=== PATIENT | male | born 1995 | race Caucasian/White ===

== ENCOUNTER 2018-11-11 17:41 | Emergency (ER) | payer BC ==
[2018-11-11] MEDS ORDERED: MULT-1335 PO (17:46)
--- NOTE | 2018-11-11 18:12 | ER Report ---
History and Physical Time Seen By MD: 18:12 Hx. 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 NO KNOWN INJURY. HPI/ROS CHIEF COMPLAINT: Left arm pain, dizziness HISTORY OF PRESENT ILLNESS: This is a 23-year-old male. He had abrupt onset of left arm pain about 1 hour prior to coming to the ER today. Had some shortness of breath, dizziness, nausea at the time as well. No known injury. Pain is at the elbow and bicep area. No radiation. Does worsen a little with movement of the arm and palpation. Has no chest pain. Shortness of breath at the same time. Not worse with exertion. No heart or lung problems in the past. No fevers or chills noted. Nausea, but no abdominal pain. Normal eating and drinking. Normal bowel and bladder. Allergies: Coded Allergies: No Known Drug Allergies (Unverified , 11/11/18) Home Meds Reported Medications Multivitamin With Minerals (MULTIPLE VITAMIN) 1 Each Tablet, 1 EACH PO DAILY, TAB 11/11/18 Reviewed Nurses Notes: Yes Hx Substance Use Disorder: No Hx Alcohol Use: No Constitutional Vital Sign - Last 24 Hours 11/11/18 11/11/18 11/11/18 11/11/18 17:44 18:03 18:11 18:20 Pulse 144 123 Resp 16 13 B/P (MAP) 177/86 152/91 (111) 104/61 (75) Pulse Ox 97 99 O2 Delivery Room Air 11/11/18 11/11/18 11/11/18 11/11/18 18:30 18:40 18:41 19:00 Temp 98.9 Pulse 85 101 Resp 16 13 B/P (MAP) 142/89 (106) 130/78 (95) 132/78 (96) Pulse Ox 93 95 O2 Delivery Room Air 11/11/18 11/11/18 11/11/18 11/11/18 19:11 19:20 19:40 19:40 Pulse 101 103 Resp 11 16 B/P (MAP) 113/65 (81) 115/70 (85) 115/70 (85) Pulse Ox 94 93 11/11/18 11/11/18 11/11/18 20:00 20:10 20:20 Pulse 102 Resp 15 B/P (MAP) 111/65 (80) 118/83 (95) Pulse Ox 90 Physical Exam General Appearance: The patient is alert. No acute distress. But is anxious. Eyes: Pupils are equal, round. No pallor, injection or icterus. ENT: Mucous membranes are moist. Normal oral mucosa. Posterior oropharynx is normal. Neck: Supple and non tender. Respiratory: Breathing easily and unlabored. Lungs are clear to auscultation. Did hear a lot of gurgling in the esophagus on listening to the chest both for lungs and heart Cardiovascular: Regular rate and rhythm. No murmurs, gallops or rubs. Normal pulsed and peripheral perfusion in the upper extremities. No edema. Gastrointestinal: Abdomen is soft and non tender. Nondistended. Normal active bowel sounds. Neurological: Alert and oriented x3. No focal neurologic deficits in the extremities, Normal sensation and motor function. Skin: Warm and dry. No rashes. Musculoskeletal: Pain in the elbow area with palpation. Full range of motion. No tenderness in palpation of the shoulder, neck and thoracic spine. DIFFERENTIAL DIAGNOSIS: After history and physical exam, differential diagnosis was considered for patient with pain in the left arm associated with nausea, shortness of breath, and dizziness, could be musculoskeletal nature, could be cardiac or pulmonary related or GI with referred pain. No neurologic or musculoskeletal abnormalities noted on exam but we will also get an x-ray of the elbow given the pain in that region. Medical Decision Making Data Points Result Diagram: 11/11/18 0000 11/11/18 0000 Laboratory Hematology Test 11/11/18 00:00 Red Blood Count 5.23 M/uL (4.00-5.60) Mean Corpuscular Volume 82.2 fL (80.0-96.0) Mean Corpuscular Hemoglobin 28.2 pg (26.0-33.0) Mean Corpuscular Hemoglobin Concent 34.3 g/dL (32.0-36.0) Red Cell Distribution Width 13.5 % (11.5-14.5) Mean Platelet Volume 7.6 fL (7.2-11.1) Neutrophils (%) (Auto) 68.2 % (39.4-72.5) Lymphocytes (%) (Auto) 23.8 % (17.6-49.6) Monocytes (%) (Auto) 6.7 % (4.1-12.4) Eosinophils (%) (Auto) 0.4 % (0.4-6.7) Basophils (%) (Auto) 0.9 % (0.3-1.4) Nucleated RBC Relative Count (auto) 0.1 /100WBC Neutrophils # (Auto) 5.3 K/uL (2.0-7.4) Lymphocytes # (Auto) 1.8 K/uL (1.3-3.6) Monocytes # (Auto) 0.5 K/uL (0.3-1.0) Eosinophils # (Auto) 0.0 K/uL (0.0-0.5) Basophils # (Auto) 0.1 K/uL (0.0-0.1) Nucleated RBC Absolute Count (auto) 0.01 K/uL D-Dimer Quantitative (PE/DVT) < 0.27 ug/ml (0-0.50) Sodium Level 139 mmol/L (137-145) Potassium Level 3.0 mmol/L (3.5-5.0) Chloride Level 101 mmol/L (98-107) Carbon Dioxide Level 23 mmol/L (22-30) Blood Urea Nitrogen 15 mg/dl (9-21) Creatinine 1.10 mg/dl (0.66-1.25) Glomerular Filtration Rate Calc > 60.0 Random Glucose 99 mg/dl (75-110) Calcium Level 10.0 mg/dl (8.4-10.2) Total Bilirubin 0.7 mg/dl (0.2-1.3) Aspartate Amino Transf (AST/SGOT) 34 U/L (0-35) Alanine Aminotransferase (ALT/SGPT) 50 U/L (0-56) Alkaline Phosphatase 91 U/L (0-126) Troponin I < 0.012 ng/ml Total Protein 8.1 g/dl (6.3-8.2) Albumin 5.0 g/dl (3.5-5.0) Amylase Level 49 U/L (0-110) Lipase 40 U/L (23-300) Chemistry Test 11/11/18 00:00 White Blood Count 7.7 k/uL (4.5-11.0) Red Blood Count 5.23 M/uL (4.00-5.60) Hemoglobin 14.7 g/dL (14.0-18.0) Hematocrit 43.0 % (42.0-52.0) Mean Corpuscular Volume 82.2 fL (80.0-96.0) Mean Corpuscular Hemoglobin 28.2 pg (26.0-33.0) Mean Corpuscular Hemoglobin Concent 34.3 g/dL (32.0-36.0) Red Cell Distribution Width 13.5 % (11.5-14.5) Platelet Count 411 K/uL (150-450) Mean Platelet Volume 7.6 fL (7.2-11.1) Neutrophils (%) (Auto) 68.2 % (39.4-72.5) Lymphocytes (%) (Auto) 23.8 % (17.6-49.6) Monocytes (%) (Auto) 6.7 % (4.1-12.4) Eosinophils (%) (Auto) 0.4 % (0.4-6.7) Basophils (%) (Auto) 0.9 % (0.3-1.4) Nucleated RBC Relative Count (auto) 0.1 /100WBC Neutrophils # (Auto) 5.3 K/uL (2.0-7.4) Lymphocytes # (Auto) 1.8 K/uL (1.3-3.6) Monocytes # (Auto) 0.5 K/uL (0.3-1.0) Eosinophils # (Auto) 0.0 K/uL (0.0-0.5) Basophils # (Auto) 0.1 K/uL (0.0-0.1) Nucleated RBC Absolute Count (auto) 0.01 K/uL D-Dimer Quantitative (PE/DVT) < 0.27 ug/ml (0-0.50) Glomerular Filtration Rate Calc > 60.0 Calcium Level 10.0 mg/dl (8.4-10.2) Total Bilirubin 0.7 mg/dl (0.2-1.3) Aspartate Amino Transf (AST/SGOT) 34 U/L (0-35) Alanine Aminotransferase (ALT/SGPT) 50 U/L (0-56) Alkaline Phosphatase 91 U/L (0-126) Troponin I < 0.012 ng/ml Total Protein 8.1 g/dl (6.3-8.2) Albumin 5.0 g/dl (3.5-5.0) Amylase Level 49 U/L (0-110) Lipase 40 U/L (23-300) Coagulation Test 11/11/18 00:00 D-Dimer Quantitative (PE/DVT) < 0.27 ug/ml EKG/Imaging EKG Interpretation 12 lead EKG: Rhythm: Sinus tachycardia, rate 103 [place]: normal QRS: normal ST segments: normal Imaging EXAMINATION: Chest 2 Views HISTORY: History of smoking. No chest complaints. COMPARISON: None. FINDINGS: The lungs are clear. Normal and symmetric lung volumes. No focal consolidation or pleural fluid. No pneumothorax. Normal cardiomediastinal silhouette, with normal heart size and pulmonary vascularity. Visualized osseous structures are unremarkable. IMPRESSION: Negative chest. Report Dictated By: Luis Estrada MD at 11/11/2018 7:02 PM EXAMINATION: Left elbow 3 views HISTORY: Left elbow pain. COMPARISON: None. FINDINGS: Bones of the left elbow demonstrate normal alignment. No evidence of fracture or dislocation. Joint space is preserved. Soft tissues are radiographically unremarkable. No significant elbow joint effusion is evident. IMPRESSION: Negative left elbow. Report Dictated By: Luis Estrada MD at 11/11/2018 7:04 PM ED Course/Re-evaluation Clinical Indication for ER IV: Hydration, IV Access ED Course Aspirin given initially, workup looking cardiac and pulmonary causes of the arm pain. EKG was negative. X-rays also unremarkable. Labs unremarkable. Discussed all this with the patient and his pain in the arm is now gone. No further nausea. With the increased gurgling heard in the esophagus when doing the chest exam, I feel like his most likely cause of pain is can be gastroesophageal reflux and possible esophagitis. He will go ahead and start a trial of either Pepcid or Zantac and follow up with his primary care provider. Decision to Disposition Date: Nov 11, 2018 Decision to Disposition Time: 20:26 Depart Departure Latest Vital Signs Vital Signs Date Time Temp Pulse Resp B/P (MAP) Pulse Ox O2 Delivery O2 Flow Rate FiO2 11/11/18 20:20 118/83 (95) 11/11/18 20:10 102 15 90 11/11/18 18:30 98.9 Room Air Impression: Primary Impression: Arm pain, left Additional Impression: Acid reflux Condition: Improved Disposition: HOME OR SELF-CARE Patient Instructions: Arm Pain (ED), Gastroesophageal Reflux Disease (ED) Additional Instructions: Your pain workup was negative today. Had mildly low potassium, recommend eating foods with more potassium and having this rechecked. Your pain could have come from acid reflux. During exam, heard reflux in the esophageal area, so recommend using Zantac or Pepcid once or twice a day. Follow-up with primary care for re-evaluation. Problem Qualifiers Additional Impression: Acid reflux Esophagitis presence: esophagitis presence not specified Qualified Codes: K21.9 - Gastro-esophageal reflux disease without esophagitis DEMETRI GILLESPIE MD Nov 11, 2018 18:12
[2018-11-11] MEDS ORDERED: ASPIRIN 81 MG CHEW PO ONE (18:35)
[2018-11-11] MEDS ORDERED: MORPHINE 2 MG/ML SYR IVP ONE (18:40)
[2018-11-11] MEDS ORDERED: ONDANSETRON 4 MG/2 ML VIAL IVP ONE (18:40)
[2018-11-11 18:46] LABS: PLATELET COUNT, AUTOMATED 411 K/uL (150-450)
--- NOTE | 2018-11-11 19:01 | EKG ---
FACILITY: [facility] PATIENT NAME: CLIFTON CISNEROS : [id number] MR: [id number] V: [id number] EXAM DATE: ORDERING PHYSICIAN: DEMETRI GILLESPIE TECHNOLOGIST: NIKI Centeno Reason : LFT ARM PAIN Blood Pressure : / mmHG Vent. Rate : 103 BPM Atrial Rate : 103 BPM P-R Int : 190 ms QRS Dur : 100 ms QT Int : 336 ms P-R-T Axes : 040 051 023 degrees QTc Int : 440 ms Sinus tachycardia Nonspecific interventricular conduction delay Nonspecific T wave flattening II, III No previous ECGs available Confirmed by WON RUBY ([id number] on 11/12/2018 6:02:51 AM Referred By: Confirmed By:WON RUBY
--- NOTE | 2018-11-11 19:07 | RADIOLOGY IMAGING REPORT ---
FACILITY: [facility] PATIENT NAME: Antonio Chung : 1995 MR: [id number] V: [id number] EXAM DATE: ORDERING PHYSICIAN: DEMETRI GILLESPIE TECHNOLOGIST: Location: [facility] Patient: Antonio Chung : 1995 Visit/Account:[id number] Date of Sevice: 11/11/2018 EXAMINATION: Chest 2 Views HISTORY: History of smoking. No chest complaints. COMPARISON: None. FINDINGS: The lungs are clear. Normal and symmetric lung volumes. No focal consolidation or pleural fluid. No pneumothorax. Normal cardiomediastinal silhouette, with normal heart size and pulmonary vascularity. Visualized osseous structures are unremarkable. IMPRESSION: Negative chest. Report Dictated By: Luis Estrada MD at 11/11/2018 7:02 PM Report E-Signed By: Luis Estrada MD at 11/11/2018 7:03 PM WSN:[id number]
--- NOTE | 2018-11-11 19:09 | RADIOLOGY IMAGING REPORT ---
[place] [facility] [place] NAME: Antonio Chung : 1995 MR: [id number] V: [id number] EXAM DATE: ORDERING PHYSICIAN: DEMETRI GILLESPIE TECHNOLOGIST: Location: [facility] [place] Patient: Antonio Chung : 1995 Visit/Account:[id number] Date of Sevice: 11/11/2018 EXAMINATION: Left elbow 3 views HISTORY: Left elbow pain. COMPARISON: None. FINDINGS: Bones of the left elbow demonstrate normal alignment. No evidence of fracture or dislocation. Joint s pace is preserved. Soft tissues are radiographically unremarkable. No significant elbow joint effusio n is evident. IMPRESSION: Negative left elbow. Report Dictated By: Luis Estrada MD at 11/11/2018 7:04 PM Report E-Signed By: Luis Estrada MD at 11/11/2018 7:04 PM WSN:[id number]
[2018-11-11 20:20] VITALS: BP 118/83
== END 2018-11-11 20:38 | disposition home or self-care (01) ==
LOC: ER 18:15
DX: M79.602 Pain in left arm (principal); K21.9 Gastro-esophageal reflux disease without esophagitis
CPT/HCPCS: 71046; 73080; 82150; 83690; 84484; 85025; 85379; 93005; 96374; 96375; 99284; J2270; J2405; 82040; 82247; 82310; 82374; 82435; 82565; 82947; 84075; 84132; 84155; 84295; 84450; 84460; 84520